=== PATIENT | female | born 1965 | race Hispanic/Latino ===

== ENCOUNTER 2017-11-14 05:50 | Observation (INO) | payer OTHER ==
--- NOTE | 2017-11-08 11:21 | Anesthesia Consultation ---
Anesthesia Consult and Med Hx Date of service: 11/08/17 - Airway Anesthetic Teeth Evaluation: Good ROM Head & Neck: Adequate Mental/Hyoid Distance: Adequate Mallampati Class: Class I Intubation Access Assessment: Good - Pulmonary Exam CTA: Yes - Cardiac Exam Cardiac Exam: RRR - Pre-Operative Health Status ASA Pre-Surgery Classification: ASA2 Proposed Anesthetic Plan: General - Pulmonary Hx Smoking: Yes (STOPPED X 9 YRS- 1 PPD X 30 YRS) Hx Sleep Apnea: No (GARY PRE SCREEN LOW RISK.) - Cardiovascular System Hx Hypertension: Yes (X 7 YRS) - Central Nervous System Hx Back Pain: Yes - Other Systems Hx Alcohol Use: Yes (WINE 5 DAYS PER WEEK) Hx Cancer: No
[2017-11-08 11:49] LABS: Basophils % (Auto) 0.6 % (0.0-1.8); Eosinophils # (Auto) 0.5 K/mm3 (0.0-0.4); Eosinophils % (Auto) 6.6 % (0.0-4.3); Lymphocytes # (Auto) 1.2 K/mm3 (1.2-5.4); Lymphocytes % (Auto) 17.6 % (13.4-35.0); Mean Corpuscular HGB Conc 36 % (30-34); Mean Corpuscular Hemoglobin 34 pg (28-32); Mean Corpuscular Volume 96 fl (79-97); Monocytes # (Auto) 0.7 K/mm3 (0.0-0.8); Monocytes % (Auto) 10.5 % (0.0-7.3); Platelet Count 272 K/mm3 (140-440); Red Blood Count 4.63 M/mm3 (3.65-5.03); Red Cell Distribution Width 13.2 % (13.2-15.2)
[2017-11-08 11:58] LABS: Hematocrit 44.5 % (30.3-42.9); Hemoglobin 15.9 gm/dl (10.1-14.3)
[2017-11-08 12:07] LABS: BUN/Creatinine Ratio 26; Blood Urea Nitrogen 13 mg/dL (7-17); Calcium 9.6 mg/dL (8.4-10.2); Hemolysis Index 19
--- NOTE | 2017-11-08 16:13 | XRay Report ---
FINAL REPORT EXAM: XR CHEST ROUTINE 2V HISTORY: Preop h/o abnormal EKG TECHNIQUE: Frontal and lateral views of the chest. PRIORS: None currently available. FINDINGS: Cardiac silhouette is within normal limits. There is no effusion. There is no pneumothorax. There is no consolidation. There are no suspicious osseous lesions. IMPRESSION: No acute cardiopulmonary findings.
--- NOTE | 2017-11-08 17:45 | History and Physical Report ---
History of Present Illness Date of examination: 11/08/17 History of present illness: Patient has been reassessed/reevaluated. H&P has been reviewed. No interval changes. This is a 52 years old menopausal female who presents with menstrual disorder. She denies irregular menses, mid-cycle spotting, heavy bleeding, lack of menses, dysmenorrhea, clotting, history of ovarian cysts, history of thyroid disease, history of fibroids, history of PCOS, history of bleeding disorder, lightheadedness, fatigue and cramping. Menstrual flow lasts > 7 days. Patient 's work up and treatment has included hysterosonogra and hysteroscopy with D& C and polypectomy. Patient symptoms persisted. Patient desires definitive treatment Patient's symptoms when present disrupts her normal daily activities Vital Signs: Patient Profile: 52 Years Old Female Height: 65 inches (165.10 cm) Weight: 136 pounds (61.82 kg) BMI: 22.63 BSA: 1.68 Past History : 2 Term Births: 2 Premature Births: 0 Living Children: 2 Para: 2 Mult. Births: 0 Prev : 0 Aborta: 0 Elect. Ab: 0 Spont. Ab: 0 Ectopics: 0 PRACTICAL NURSING FACULTY History Operations: Kidney Stone removal x2 Hysteroscopy D&C: (2015) polyp removal Abnormal PAP: negative Uterine Anomaly: negative Infection History HIV Risk Eval: no Hx of STD: None Current Allergies (reviewed today): No known allergies Past Medical History: Hypertension Kidney Disease Membraneous Nepropathy Arthititris Kidney Stone Past Surgical History: Kidney Stone removal x2 Hysteroscopy D&C: (2015) polyp removal Family History Summary: Other family member - Has Family History of Coronary Heart Disease - Entered On : 10/23/2017 Other family member - Has Family History of Diabetes - Entered On: 10/23/2017 Other family member - Has Family History of Hypertension - Entered On: 10/23/2017 Other family member - Has Family History of Renal Disease - Entered On: 10/23/2017 Other family member - Has Family History of Thyroid Disease - Entered On: 2017 Other family member - Has No Family History of Breast Cancer - Entered On: 2017 Other family member - Has No Family History of Colon Cancer - Entered On: 2017 Other family member - Has No Family History of Ovarvian Cancer - Entered On: 10/23 Social History: Marital Status: Wdow Children: 2 Occupation: [employer] Smoking History: Patient is a former smoker. Risk Factors: Smoked Tobacco Use: Former smoker Smokeless Tobacco Use: Never Passive smoke exposure: no Drug use: no HIV high-risk behavior: no Alcohol use: yes Exercise: no Seatbelt use: 100 % Review of Systems General Complains of fatigue. Denies fever, chills, sweats, anorexia, weakness, malaise, weight loss and sleep disorder. Complains of menorrhagia and abnormal vaginal bleeding. Denies vaginal discharge, incontinence, dysuria, hematuria, urinary frequency, amenorrhea, pelvic pain, genital sores, decreased libido, painful periods, painful sex, urinary urgency, hot flashes, vaginal dryness, vaginal itching and vaginal odor. CV Denies chest pains, palpitations, syncope, dyspnea on exertion, orthopnea, PND and peripheral edema. Resp Denies cough, dyspnea at rest, excessive sputum, hemoptysis, wheezing and pleurisy. GI Denies nausea, vomiting, diarrhea, constipation, change in bowel habits, abdominal pain, melena, hematochezia, jaundice, gas/bloating, indigestion/ heartburn, dysphagia and odynophagia. Breast Denies left breast lump, right breast lump, nipple discharge, bloody discharge from nipple, breast pain, abnormal mammogram and breast enlargement. Psych Denies depression, anxiety, irritability and mood swings. [ Past History Past Medical History: other (See HPI) Past Surgical History: Other (See HPI) Social history: other (See HPI) Family history: other (See HPI) Medications and Allergies Allergies Allergy/AdvReac Type Severity Reaction Status Date / Time No Known Allergies Allergy Verified 11/02/17 16:27 Home Medications Medication Instructions Recorded Confirmed Last Taken Type Aspirin [Aspir-Low] 81 mg PO DAILY 11/02/17 11/02/17 Unknown History Cholecalciferol (Vitamin D3) 1,000 unit PO DAILY 11/02/17 11/02/17 Unknown History [Vitamin D3] Ibuprofen [Motrin] 800 mg PO Q8HR PRN 11/02/17 11/02/17 Unknown History L. Acidophilus/Pectin, Dare 1 each PO DAILY 11/02/17 11/02/17 Unknown History [Acidophilus Probiotic Capsule] Lisinopril/Hydrochlorothiazide 1 each PO DAILY 11/02/17 11/02/17 Unknown History [Zestoretic 10-12.5 mg Tablet] Milk Thistle 150 mg PO DAILY 11/02/17 11/02/17 Unknown History Active Meds: Active Medications Celecoxib (Celebrex) 200 mg PO PREOP NR Stop: 11/14/17 23:00 Gabapentin (Neurontin) 300 mg PO PREOP NR Stop: 11/14/17 23:01 Lactated Ringer's (Lactated Ringers) 1,000 mls @ 100 mls/hr IV DIRECT LONNIE Midazolam HCl (Versed) 2 mg IV PREOP NR Stop: 11/14/17 23:59 Review of Systems Constitutional: other (See HPI) Exam - Physical Exam Narrative exam: HEENT: normocephalic, no lesions or deformities Skin no significant abnormal lesions or rashes Chest: respiratory effort normal, clear to auscultation Breasts: skin/areolae normal, no masses, no nipple discharge, no erythema/warmth /tenderness, and axillae normal. CV: regular, normal S1-S2, no murmur, no rub, no gallop Abdomen: normal bowel sounds, soft, nontender, no HSM Musculoskeletal: grossly normal ROM in joints, no joint tenderness or muscle weakness Neuro: no gross anomalities Extremities: no clubbing, cyanosis, or edema PRACTICAL NURSING FACULTY Exams Vulva/Vagina: No lesions, normal BUS, normal rugae Cervix: No lesions; no cervical motion tenderness Uterus: normal size and position, midline, mobile Adnexae: no masses or tenderness Rectovaginal: Rectal exam deferred due to colonoscopy recently performed or is planned - Constitutional Vitals: Temp Pulse Resp BP Pulse Ox 98 F 64 16 130/80 11/08/17 11:15 11/08/17 11:15 11/08/17 11:15 11/08/17 11:15 Results - Labs CBC & Chem 7: 11/08/17 11:20 11/08/17 11:20 Labs: Abnormal lab results 11/08/17 11/08/17 Range/Units 11:20 11:20 Hgb 15.9 H (10.1-14.3) gm/dl Hct 44.5 H (30.3-42.9) % MCH 34 H (28-32) pg MCHC 36 H (30-34) % [place] % (Auto) 10.5 H (0.0-7.3) % Eos % (Auto) 6.6 H (0.0-4.3) % Eos # 0.5 H (0.0-0.4) K/mm3 Chloride 97.4 L (98-107) mmol/L Carbon Dioxide 32 H (22-30) mmol/L Creatinine 0.5 L (0.7-1.2) mg/dL Glucose 123 H (65-100) mg/dL Assessment and Plan - Patient Problems (1) Postmenopausal bleeding Current Visit: No Status: Acute Plan to address problem: Diagnosis explained to patient . Questions answered. Medical and surgical treatment options discussed Patient declined Patient desires least invasive procedure Patient's symptoms when present disrupts her normal daily activities Patient desires definitive treatment Patient desires hysterectomy Discussed risks and benefits of laparotomy, laparoscopy, vaginal and robotic assisted approaches for hysterectomies Patient desires robotic assisted total hysterectomy. Patient desires robotic assisted total hysterectomy. Consent reviewed and signed . The risks and alternatives for this surgery were reviewed with the patient. Discuss the risks of the surgery including infection , bleeding possibly heavy enough to require a blood transfusion, possible damage to bowel, bladder or ureter. Patient understand that this surgery with make her sterile.Patient understands if her ovaries are removed she will become menopausal. 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
[2017-11-14] MEDS ORDERED: LACTATED RINGERS 1,000 ML IV SCH (06:00)
[2017-11-14] MEDS ORDERED: NEURONTIN PO NR (06:00)
[2017-11-14] MEDS ORDERED: VERSED IV NR (06:00)
[2017-11-14] MEDS ORDERED: ANCEF/STERILE WATER 2 GM/20 ML 2 GM/20 ML SYRINGE IV NR (07:00)
[2017-11-14] MEDS ORDERED: SUBLIMAZE ONE ×2 (07:22→07:27)
[2017-11-14] MEDS ORDERED: ZEMURON IV ONE (07:22)
[2017-11-14] MEDS ORDERED: XYLOCAINE MPF 2% ONE (07:22)
[2017-11-14] MEDS ORDERED: QUELICIN ONE (07:22)
[2017-11-14] MEDS ORDERED: REGLAN ONE (07:22)
[2017-11-14] MEDS ORDERED: ZOFRAN ONE (07:22)
[2017-11-14] MEDS ORDERED: DIPRIVAN 10 MG/ML IV ONE (07:22)
[2017-11-14] MEDS ORDERED: MARCAINE 0.25% INFILTRATI ONE (07:27)
[2017-11-14] MEDS ORDERED: DECADRON ONE (07:27)
[2017-11-14] MEDS ORDERED: MARCAINE-EPI 0.25%-1:200,000 INFILTRATI ONE (07:34)
[2017-11-14] MEDS ORDERED: NEOSPORIN GU IR ONE ×2 (07:34→09:01)
[2017-11-14] MEDS ORDERED: DILAUDID IV PRN (08:09)
[2017-11-14] MEDS ORDERED: NEO SYNEPHRINE/NS Syringe(OR USE) IV ONE (08:10)
--- NOTE | 2017-11-14 08:10 | Anesthesia Day of Surgery ---
Anesthesia Day of Surgery - Day of Surgery Patient Examined: Yes Patient H&P Reviewed: Yes Patient is NPO: Yes
[2017-11-14] MEDS ORDERED: LACTATED RINGERS 1,000 ML ONE (08:28)
[2017-11-14] MEDS ORDERED: NACL 0.9% IR ONE ×2 (09:01)
[2017-11-14] MEDS ORDERED: ROBINUL ONE (09:45)
[2017-11-14] MEDS ORDERED: BLOXIVERZ ONE (09:45)
--- NOTE | 2017-11-14 09:54 | Operative Report ---
Operative Report Operative Report: Date of procedure: 11/14/2017 Pre-operative diagnosis: Post menopausal bleeding Post-operative diagnosis: Same Procedure name(s):Robotic Assisted Total Hysterectomy with bilateral salpingectomy Surgeon: Sukh De La Cruz MD Apartment Rental Clerk: Luna Rodriguez certified juvenile probation officer Anesthesia: General EBL: 30 mL Complications: None Findings: Normal tubes and ovaries bilaterally. Normal uterus Specimen(s): Uterus with bilateral fallopian tubes and cervix Procedure: Patient was brought to the operating room where general anesthesia was induced without difficulty. Patient was placed in the dorsal lithotomy position. Prepped and draped in the usual sterile manner for robotic procedure. Stoll catheter was placed without difficulty. Speculum was placed in the vagina. A [employer] Uterine manipulator was placed without difficulty. Attention was now switched to the patient's abdomen. A vertical supra-umbilicus incision was made with a scalpel. A 10-12 trocar was placed in this incision under direct visualization. Intra-abdominal placement was verified with no evidence of internal organ damage. The patient pelvic findings were noted as above. It was determined that the patient was a candidate for robotic procedure. On both sides the umbilical incision at about 8 cm, incisions were made for robotic trocar. Each robotic trocar was placed under direct visualization with no evidence of internal organ damage. One outpatient surgery rn port was placed. One 5 mm trocar was placed 2 fingerbreadths above the right iliac crest under direct visualization with no evidence of internal organ damage. At this time the patient was placed in extreme Trendelenburg. The da Dayana robot was then docked on the patient's left side. The trocars connected to the robot appropriately. At this time I took my place under the robotic operating boyd. Starting on the patient's right side the mesosalpinx of the tube were cauterized for mild distal to proximal tube. Bipolar cautery was placed across the proximal portion of the fallopian tube. This area was cauterized and cut the fallopian tube was then removed from the assistant field hockey coach port. Utero-ovarian complex was cauterized and cut. This was followed by cauterizing and cutting the right fallopian tube and right round ligament. The broad ligament was then opened. The bladder flap was formed anteriorly. The posterior broad ligament was then excised. The uterine vessels were skeletonized. The ureter was clearly seen out of the operative field. The bladder was pushed away from the anterior uterus. Attention was then switched to the patient's left side. The same procedure was repeated on the left side with perform the salpingectomy followed by isolating the uterine vessels cauterized and cutting and completing the bladder flap from the left side. At this time the uterus was appearing very cyanotic. After inspecting the bladder flap insured no evidence of bladder injury, the colpotomy was then started. Incision started at 6:00 until the V-Care could be seen. This incision was extended from 6:00 to 9:00. Then from 6:00 to 3:00. Then from 9: 00 to 12:00. This incision was extended from 3:00 to 12:00. At this time colpotomy was complete with no evidence of adjacent organ damage. The outpatient surgery rn remove the uterus from through the colpotomy site. The vaginal cuff was irrigated and cauterized and found to be hemostatic. The cuff was closed with roboticly using 0 V- Lock suture. This closure was hemostatic after irrigation and Bovie. All pedicles were inspected and found to be hemostatic. The ureters were identified bilaterally and found to be functioning normal. The patient had clear urine in the Stoll catheter with no evidence of mixture with blood. Gaby was placed on the cuff and pedicles for postoperative hemostasis . All instruments were then removed. The large trocar sites were closed in layers with 0 and 4-0 Vicryl. The smaller incision was closed subcuticularly with 4-0 Vicryl. The patient tolerated procedure well. She was awakened in the operating room and accompanied to the recovery room in good condition.
[2017-11-14] MEDS ORDERED: NON-FORMULARY (Lisinopril/Hydrochlorothiazide [Zestoretic 10-12.5 Mg Tablet] 1 EACH) PO SCH (10:00)
[2017-11-14] MEDS ORDERED: ZESTRIL PO SCH (12:00)
[2017-11-14] MEDS ORDERED: HCTZ PO SCH (12:00)
[2017-11-14] MEDS ORDERED: NORCO 5/325 PO PRN (12:27)
--- NOTE | 2017-11-14 13:50 | Post Anesthesia Evaluation ---
- Post Anesthesia Evaluation Patient Participated: Yes Airway Patent: Yes Stable Respiratory Function: Yes Nausea/Vomiting: No Temp > 96.8F: Yes Pain Manageable: Yes Adequeate Hydration: Yes Anesthesia Complications: No
[2017-11-14] MEDS ORDERED: VASELINE TP ONE (15:58)
[2017-11-14] MEDS: ANCEF/NS 1 GM/50 ML 1 GM/50 ML BAG IV SCH ×2 (16:00→21:14)
[2017-11-14] MEDS: TORADOL IV SCH ×2 (17:45→21:07)
[2017-11-14] MEDS: D5LR 1,000 ML IV SCH (17:53)
[2017-11-14] MEDS: HALFPRIN EC PO SCH (21:05)
[2017-11-14] MEDS: HCTZ PO SCH (21:06)
[2017-11-14] MEDS: ZESTRIL PO SCH (21:07)
[2017-11-14] MEDS: COLACE PO SCH ×2 (21:07→21:14)
[2017-11-15] MEDS: TORADOL IV SCH (01:26)
[2017-11-15] MEDS: D5LR 1,000 ML IV SCH (04:25)
[2017-11-15 05:50] LABS: Hematocrit 37.9 % (30.3-42.9)
--- NOTE | 2017-11-15 09:20 | Discharge Summary ---
Providers - Providers Date of Admission: 11/14/17 09:56 Date of discharge: 11/15/17 Attending physician: FILEMON ECHOLS Primary care physician: EFREN CARRASQUILLO DO Hospitalization Reason for admission: Postmenopausal bleeding Condition: Good Procedures: Robotic-assisted total hysterectomy with bilateral salpingectomy Hospital course: Patient was admitted and underwent above procedure without complications. Her post operative course was benign she was afebrile throughout. Patient postoperative day 1 hematocrit was in an acceptable range. Patient had no orthostatic symptoms. Patient was tolerating regular diet and voiding without difficulty at time of discharge. Patient incision was healing well without evidence of infection. Disposition: DC-01 TO HOME OR SELFCARE - Discharge Diagnoses (1) Postmenopausal bleeding Status: Acute (2) Membranous nephritis Status: Chronic (3) Kidney stone Status: Chronic (4) Hypertension Status: Acute Qualifiers: Hypertension type: essential hypertension Qualified Code(s): I10 - Essential (primary) hypertension Core Measure Documentation - Palliative Care Palliative Care/ Comfort Measures: Not Applicable - Core Measures Any of the following diagnoses?: none Exam - Constitutional Vitals: Temp Pulse Resp BP Pulse Ox 98.7 F 63 18 104/63 98 11/15/17 06:00 11/15/17 06:00 11/15/17 06:00 11/15/17 06:00 11/14/17 11:00 General appearance: Present: no acute distress - Neck Neck: Present: supple - Respiratory Respiratory effort: normal - Cardiovascular Rhythm: regular - Extremities Extremities: no ischemia, pulses intact, No edema - Abdominal General gastrointestinal: Present: soft, tender (appropriately.), distended ( slightly), normal bowel sounds Female genitourinary: Present: deferred - Rectal Rectal Exam: deferred - Integumentary Integumentary: Present: clear, warm, dry - Musculoskeletal Musculoskeletal: strength equal bilaterally - Psychiatric Psychiatric: appropriate mood/affect, intact judgment & insight Plan Activity: advance as tolerated Diet: regular Wound: open to air Additional Instructions: Patient instructed no heavy lifting for 4 weeks. No intercourse for 8 weeks. Call office for fever, chills, nausea, vomiting or pain not controlled by pain medications. Ambulation is encouraged. Patient's call for heavy vaginal bleeding. Patient instructed to keep her scheduled post operative office appointment. Follow up with: EFREN CARRASQUILLO DO [Primary Care Provider] - 7 Days Prescriptions: Ibuprofen [Motrin 600 MG tab] 800 mg PO Q6H PRN #30 tablet PRN Reason: Pain oxyCODONE /ACETAMINOPHEN [Percocet 5/325 mg] 1 - 2 tab PO Q4H PRN #30 tablet PRN Reason: Pain, Moderate
[2017-11-15] MEDS: COLACE PO SCH (10:54)
[2017-11-15] MEDS: ZESTRIL PO SCH (10:55)
[2017-11-15 10:56] VITALS: BP 105/69
[2017-11-15] MEDS: HCTZ PO SCH (10:56)
[2017-11-15] MEDS: HALFPRIN EC PO SCH (10:56)
== END 2017-11-15 11:00 | disposition home or self-care (01) ==
LOC: OR 05:50 → INTOOBSV 09:56 → OB 09:56
PROVIDERS: ADMIT Obstetrics & Gynecology; ATTEND Obstetrics & Gynecology
DX: N95.0 Postmenopausal bleeding (principal); N20.0 Calculus of kidney; N05.2 Unspecified nephritic syndrome with diffuse membranous glomerulonephritis; I10 Essential (primary) hypertension; M19.90 Unspecified osteoarthritis, unspecified site; Z87.891 Personal history of nicotine dependence; Z72.89 Other problems related to lifestyle
CPT/HCPCS: 36415; 58571; 64450; 71046; 80048; 84703; 85014; 85018; 85025; 86850; 86900; 86901; 88302; 88307; 93005; 93010; 96365; 96366; 96375; 96376; A4217; G0378; J0330; J0690; J1100; J1885; J2250; J2370; J2405; J2704; J2710; J2765; J3010; J7120; J7121; S2900; A6250